=== PATIENT | male | born 1950 | race Caucasian/White ===

== ENCOUNTER → 2017-04-30 | Outpatient (CLI) | payer MEDICARE ==
[~2017-04-30] MED LIST: REGADENOSON 0.4 MG/5 ML DISP.SYRIN. IV ONE
--- NOTE | 2017-04-30 11:52 | PCVCIMAG ---
APPROVED REPORT Exam: Nuclear Stress Test Indication: CAD, Pre Op Patient Location: Out-Patient Stress Nurse: Taylor Mcadams RN, Shireen Salgado RN [place] Tech:Thien Ivan NMTCB Ht: 6 ft 2 in Wt: 189 lbs BSA: 2.12 m2 HR: 78 bpm BP: 157/81 mmHg BMI: 24.2 Rhythm: SR, ST and T abnormality Medical History Medical History: Age, Hyperlipidemia, HTN, [place], DM Non insulin, Smoker Medications: ASA, Atorvastatin, Coreg, Chlorthalidone, Clonidine, Crestor, Losartan Previous Cardiac Procedures: PCI, PAUL mid LAD Non STEMI Pretest Chest Pain Characteristics: No chest pain Exercise History: Physically active Stress Test Details Stress Test: Pharmacologic stress testing performed using 0.4 mg of regadenoson per 5 mL given IV over 10 seconds. Reason for pharmacologic stress test: Chronic Back pain. HR Resting HR: 78 bpmMax Heart Rate (APMHR): 153 bpm Max HR Achieved: 98 bpmTarget HR (85% APMHR): 130 bpm % of APMHR: 64 Recovery HR: 90 bpm BP Resting BP: 157/81 mmHg Max BP: 167/80 mmHg ECG Resting ECG: Sinus Rhythm, nonspecific ST-T abnormalities Stress ECG: Sinus Rhythm, nonspecific ST-T abnormalities ST Change: Non-ischemic Recovery ECG: Sinus Rhythm, nonspecific ST-T abnormalities Clinical Reason for Termination: Completed protocol Stress Symptoms: Dyspnea Exercise duration: min 55 sec Exercise capacity: 1.0 METs Symptoms resolved over time NM EXAM: Myocardial Perfusion REST/STRESS Imaging Protocol: Rest Tc-99m/Stress Tc-99m 1 day Resting Data Rest SPECT myocardial perfusion imaging was performed in supine position 45 minutes following the intravenous injection of 9.5 mCi of Tc-99m Sestamibi. Time of rest injection: 0840 Date: 04/30/2017 Administration Route: IV Administration Site: Right Hand Pharmacologic Stress Pharmacologic stress test was performed by injecting Regadenoson 0.4 mg IV push followed by the intravenous injection of 28.8 mCi of Tc-99m Sestamibi. Time of stress injection: 1005 Date: 04/30/2017 Administration Route: IV Administration Site: Right Hand Gated Stress SPECT was performed 45 minutes after stress injection. The images were gated to evaluate regional wall motion and calculate left ventricular ejection fraction. Study Quality Study: Good Artifact: Mild Diaphragmatic artifact Study Data Post stress, the left ventricular ejection was 58%.. SSS: 0 SRS: 0 SDS: 0 TID = 0.95. Perfusion There is a medium area of moderately reduced uptake in the basal segment of the inferior wall which is seen on the stress images as well as the resting images. This area thickens and moves normally and is most consistent with attenuation artifact. Wall Motion Normal left ventricular wall motion. Nuclear Conclusion ECG Findings: non-ischemic Clinical Findings: non-diagnostic Nuclear Findings: negative for ischemia This study is of low probability for inducible ischemia or prior infarct. Normal global and segmental LV systolic function. Artifact: Mild Diaphragmatic artifact
== END | disposition home or self-care (01) ==
LOC: PCVCIMAG 08:25
PROVIDERS: ATTEND Internal Medicine Cardiovascular Disease
DX: Z01.818 Encounter for other preprocedural examination (principal); I25.10 Atherosclerotic heart disease of native coronary artery without angina pectoris; I10 Essential (primary) hypertension; E11.9 Type 2 diabetes mellitus without complications; F17.210 Nicotine dependence, cigarettes, uncomplicated; I21.9 Acute myocardial infarction, unspecified; E78.00 Pure hypercholesterolemia, unspecified; Z79.899 Other long term (current) drug therapy; Z79.82 Long term (current) use of aspirin; Z79.4 Long term (current) use of insulin
CPT/HCPCS: 78452; 93005; 93017; A9500; G0463; J2785

== ENCOUNTER → 2017-10-29 | Outpatient (CLI) | payer MEDICARE | END | disposition home or self-care (01) | LOC: PCVCCLINIC 14:15 | DX: I25.10 Atherosclerotic heart disease of native coronary artery without angina pectoris (principal); I10 Essential (primary) hypertension; E78.00 Pure hypercholesterolemia, unspecified; F17.210 Nicotine dependence, cigarettes, uncomplicated; Z79.899 Other long term (current) drug therapy; Z79.82 Long term (current) use of aspirin; Z79.4 Long term (current) use of insulin | CPT/HCPCS: 93005; G0463 ==